=== PATIENT | male | born 1965 | race American Indian/Alaskan Native ===

== ENCOUNTER 2016-12-20 11:25 | Observation (INO) | payer BC ==
--- NOTE | 2016-12-20 11:59 | ED PDOC ---
Arrival/HPI - General Chief Complaint: Substance Abuse Time Seen by Provider: 12/20/16 11:40 Historian: Patient, EMS - History of Present Illness Narrative History of Present Illness (Text): 12/20/16 11:42 A 51 year old male, who denies any significant past medical history, presents to the emergency brought in via EMS, due to being found slumped over in car. The EMS states the patient admitted to using heroin, they gave intranasal Narcan to wake up patient. He became arousable after administration. The patient admits to sniffing heroin on and off for years now. The patient is completely asymptomatic and states that he is simply tired. PMD: none Time/Duration: Prior to Arrival Quality: Other Activities at Onset: Other (heroin use ) Context: Att[employer] Past Medical History - Provider Review Nursing Documentation Reviewed: Yes - Psychiatric Hx Substance Use: Yes Family/Social History - Physician Review Nursing Documentation Reviewed: Yes Family/Social History: Unknown Family HX Smoking Status: Never Smoked Hx Alcohol Use: No Hx Substance Use: Yes Allergies/Home Meds Allergies/Adverse Reactions: Allergies No Known Allergies Allergy (Verified 12/20/16 11:43) Home Medications: Home Meds Medication Instructions Recorded Confirmed No Known Home Med 12/20/16 12/20/16 Review of Systems - Physician Review All systems were reviewed & negative as marked: Yes - Review of Systems Constitutional: absent: Fevers Respiratory: absent: SOB Cardiovascular: absent: Chest Pain Gastrointestinal: absent: Abdominal Pain, Diarrhea, Nausea Psychiatric: absent: Suicidal Ideation Physical Exam Vital Signs Reviewed: Yes Vital Signs Temp Pulse Resp BP Pulse Ox 12/20/16 11:30 97.7 F 12/20/16 11:25 60 14 133/77 100 Temperature: Afebrile Blood Pressure: Normal Pulse: Regular Respiratory Rate: Normal Appearance: Positive for: Well-Appearing, Non-Toxic, Comfortable Pain Distress: None Mental Status: Positive for: other (somnolent but oriented x 3) - Systems Exam Head: Present: Atraumatic, Normocephalic Pupils: Present: PERRL, Other (3 mm bilateral ) Conjunctiva: Present: Normal Mouth: Present: Moist Mucous Membranes Pharnyx: Present: Normal. No: ERYTHEMA, EXUDATE Neck: Present: Normal Range of Motion Respiratory/Chest: Present: Clear to Auscultation, Good Air Exchange. No: Respiratory Distress, Accessory Muscle Use Cardiovascular: Present: Regular Rate and Rhythm, Normal S1, S2. No: Murmurs Abdomen: Present: Normal Bowel Sounds. No: Tenderness, Distention, Peritoneal Signs Back: Present: Normal Inspection Upper Extremity: Present: Normal Inspection. No: Cyanosis, Edema Lower Extremity: Present: Normal Inspection. No: Edema Neurological: Present: GCS=15, CN II-XII Intact, Speech Normal Skin: Present: Warm, Dry, Normal Color. No: Rashes Psychiatric: Present: Oriented x 3, Normal Insight, Normal Concentration, Other (The patient is somnolent otherwise oriented). No: Suicidal Ideation Medical Decision Making ED Course and Treatment: 12/20/16 12:24 Impression: A 51 year old male who used heroin; became fully arousable after narcan. Plan: -- Reassess and disposition Progress Notes: patient placed on observation till full sobriety. ED OBSERVATION Discharge: Yes Date of observation admission: 12/20/16 Time of observation admission: 11:42 - Observation admission statement Patient is being placed in observation because:: Patient with opiate overdose s/p narcan and needs to be observed in the ED till full sobriety and wakefullness - Goals of Observation Goals of observation are:: Await full sobriety and safety for discharge. - Progress Note Progress Note: 12/20/16 13:25 Patient is still somnolent but fully arousable with normal vitals. 12/20/16 15:00 Patient is somnolent but more wakefull; vitals are normal. He is comfortable appearing without complaints. 12/20/16 16:06 Patient is awake and ambulatory and is without complaints. He denies any symptoms at all, including no cp or sob or abd pain or n/v or headache or SI. He says he has not medical problems and takes no medications - ok for d/c. - Scribe Statement The provider has reviewed the documentation as recorded by the Amparo Kessler Provider Scribe Attestation: All medical record entries made by the Scribe were at my direction and personally dictated by me. I have reviewed the chart and agree that the record accurately reflects my personal performance of the history, physical exam, medical decision making, and the department course for this patient. I have also personally directed, reviewed, and agree with the discharge instructions and disposition. Disposition/Present on Arrival - Present on Arrival Any Indicators Present on Arrival: No History of DVT/PE: No History of Uncontrolled Diabetes: No Urinary Catheter: No History of Decub. Ulcer: No History Surgical Site Infection Following: None - Disposition Have Diagnosis and Disposition been Completed?: Yes Diagnosis: Heroin overdose Disposition: HOME/ ROUTINE Disposition Time: 16:15 Patient Plan: Discharge Condition: GOOD Discharge Instructions (ExitCare): Narcotic Abuse (ED) Additional Instructions: Stop heroine or any other drug use completely. Follow up with primary care. Return to the emergency department if any new concerning symptoms. Referrals: [facility] at [facility] [Outside] - Follow up with primary Baudilio Antonio MD [Staff Provider] - Follow up with primary Forms: [employer] (Turkmen)
[2016-12-20 12:17] VITALS: O2SAT 100
[2016-12-20 16:58] VITALS: TEMP 97.8
[2016-12-20 16:59] VITALS: BP 130/82; PULSE 64; RESP 16
--- NOTE | 2016-12-21 12:14 | CARD ---
APPROVED REPORT EKG Measurement Heart [id number] <Conclusion> Poor data quality, interpretation may be adversely affected Normal sinus rhythm Incomplete right bundle branch block Borderline ECG
== END 2016-12-20 16:13 | disposition home or self-care (01) ==
LOC: ED 11:25 → EROBSV 11:42 → MERGE 11:42
PROVIDERS: ADMIT Emergency Medicine; ATTEND Emergency Medicine
DX: T40.1X1A Poisoning by heroin, accidental (unintentional), initial encounter (principal); Y92.810 Car as the place of occurrence of the external cause
CPT/HCPCS: 93005; 99285; G0378